=== PATIENT | male | born 1995 | race Native Hawaiian/Other Pacific Islander ===

== ENCOUNTER 2019-03-26 16:46 | Emergency (ER) | payer OTHER ==
[~2019-03-26] VITALS: Ht 182.9 cm; Wt 102.1 kg
[2019-03-26 16:52] VITALS: TEMP 97.2
[2019-03-26 19:09] VITALS: BP 119/82
== END 2019-03-26 19:09 | disposition home or self-care (01) ==
LOC: ED 16:46
DX: M62.838 Other muscle spasm (principal); M51.17 Intervertebral disc disorders with radiculopathy, lumbosacral region
CPT/HCPCS: 99283

== ENCOUNTER 2020-09-16 11:10 | Emergency (ER) | payer BC ==
[~2020-09-16] VITALS: Ht 182.9 cm; Wt 102.1 kg
[2020-09-16 11:19] VITALS: BP 135/85; TEMP 97.7
== END 2020-09-16 13:05 | disposition home or self-care (01) ==
LOC: ED 11:10
PROC: 2W3RX1Z Immobilization of Left Lower Leg using Splint (ICD-10-PCS; principal; 2020-09-16)
DX: S93.492A Sprain of other ligament of left ankle, initial encounter (principal); X50.9XXA Other and unspecified overexertion or strenuous movements or postures, initial encounter; Y92.89 Other specified places as the place of occurrence of the external cause
CPT/HCPCS: 99283; J1885